=== PATIENT | male | born 1965 | race Caucasian/White ===

== ENCOUNTER 2017-03-20 09:47 | Emergency (ER) | payer BC ==
[2017-03-20 11:42] VITALS: BP 109/68
--- NOTE | 2017-03-20 11:57 | UC ---
Back Pain HPI - HPI Summary HPI Summary: 51 y/o male presents to the urgent care c/o sudden lower back pain since yesterday while lifting a heavy object around 1000 am. Pt reports he has had mild lower back pain since 01/2017, but yesterday it became worse. He has taking Excedrin PO to alleviate pain. Pain spasmodic and sharp, 7/10 with movement and 3/10 at rest. Pt denies numbness and tingling over the lower extremities, saddle anesthesia, urinary or fecal incontinence, SOB, chest pain, N/V/D, abdominal pain. - History of Current Complaint Chief Complaint: UCBackPain Stated Complaint: BACK PAIN Time Seen by Provider: 03/20/17 11:36 Hx Obtained From: Patient Onset/Duration: Sudden Onset, Lasting Days - yesterday, Still Present Timing: Constant Severity Initially: Moderate Severity Currently: Moderate Pain Intensity: 7 Pain Scale Used: 0-10 Numeric Back Pain: Is Discrete @ - lowr back specially at the left side of back Character: Dull, Spasmodic Aggravating Factor(s): Movement, Lifting, Bending Alleviating Factor(s): Rest Associated Signs And Symptoms: Positive: Pain with Weight Bearing. Negative: Swelling, Fever, Weakness, Numbness, Tingling, Bladder Incontinence, Bowel Incontinence - Risk Factors AAA Risk Factors: Negative TAD Risk Factors: Negative Cauda Equina Risk Factors: Negative Epidural Abscess Risk Factors: Negative - Allergies/Home Medications Allergies/Adverse Reactions: Allergies Allergy/AdvReac Type Severity Reaction Status Date / Time No Known Allergies Allergy Verified 07/12/12 13:03 Home Medications: Home Medications Atorvastatin* [Lipitor 40 MG*] 40 mg PO DAILY 03/20/17 [History Confirmed ] Hydrochlorothiazide TAB* [Hydrodiuril TAB*] 25 mg PO DAILY 03/20/17 [History Confirmed 03/20/17] Metformin HCl [Fortamet] 1,000 mg PO BID 03/20/17 [History Confirmed 03/20/17] Colmar-3 Fatty Acids [Fish Oil] 1,000 mg PO DAILY 03/20/17 [History Confirmed ] Ultimate Eye Support 2 tab PO DAILY 03/20/17 [History Confirmed 03/20/17] glipiZIDE TAB* [Glucotrol TAB*] 5 mg PO DAILY 03/20/17 [History Confirmed ] PMH/Surg Hx/FS Hx/Imm Hx Previously Healthy: Yes Endocrine History: Diabetes, Dyslipidemia Cardiovascular History: Hypertension Psychological History: Depression - Surgical History Surgical History: None Surgery Procedure, Year, and Place: vasectomy, depression - Family History Known Family History: Positive: Cardiac Disease, Hypertension, Diabetes - Social History Occupation: Employed Full-time Lives: With Family Alcohol Use: None Substance Use Type: None Smoking Status (MU): Unknown if Ever Smoked Amount Used/How Often: 2 cans per week Review of Systems Constitutional: Negative Skin: Negative Eyes: Negative ENT: Negative Respiratory: Negative Cardiovascular: Negative Gastrointestinal: Negative Genitourinary: Negative Motor: Negative Neurovascular: Negative Musculoskeletal: Other: - lower back pain Neurological: Negative Psychological: Negative Is Patient Immunocompromised?: No All Other Systems Reviewed And Are Negative: Yes Physical Exam Triage Information Reviewed: Yes Vital Signs: Initial Vital Signs Temp 99 F 03/20/17 11:33 Pulse 68 03/20/17 11:33 Resp 22 03/20/17 11:33 BP 109/68 03/20/17 11:33 - Additional Comments Vital reviewed General: Patient is a well developed male without any distress that sitting comfortably in the examining table Skin: [place], warm, dry HEAD AND FACE: No signs of trauma. EYES: PERRLA, EOMI x 2. EARS: Hearing grossly intact. MOUTH: Oropharynx within normal limits. NECK: Supple, trachea is midline, no adenopathy, no JVD. CHEST: Symmetric, no tenderness at palpation LUNGS: CTA bilaterally, no rales, rhonchi or wheezing CVS: RRR, no murmur, rub, or gallop ABDOMEN: soft and Nontender without masses, no guarding or rebound. Bowel sounds are active. No Hepato-splenomegaly. No signs of inguinal hernias. BACK: Patient walked into the urgent care room with symmetric ambulation, No signs of limping, antalgic, able to bear weight. No signs of trauma, Left side spasm in the Paraspinal muscles at the level of L3-L4 spine. No masses palpated. Point tenderness at L3-L4 of lumbat spine, No CVAT, no flank ecchymosis . No sacroiliac notch tenderness, No saddle anesthesia. Decrease ROM : flexion/ extension/ lateral bending and rotation, due to pain Straight Leg Raise: negative.Patellar reflexes: brisk, symmetric Muscle strength lower extremities. Dorsiflexion/ plantar flexion of ankles. Lower extremities: Femoral, popliteal, posterior tibial, and dorsalis pedis pulses with in normal, Rectal: Patient refused the exam. Neurological: WNL Psychological: WNL Skin: dry and warm Back Pain Course/Dx - Course Course Of Treatment: 51 y/o male presents to the urgent care c/o sudden lower back pain since yesterday while lifting a heavy object around 1000 am. Pt reports he has had mild lower back pain since 01/2017, but yesterday it became worse. He has taking Excedrin PO to alleviate pain. Pain spasmodic and sharp, 7/10 with movement and 3/10 at rest. Pt denies numbness and tingling over the lower extremities, saddle anesthesia, urinary or fecal incontinence, SOB, chest pain, N/V/D, abdominal pain.Hx obtained.PE: Point tenderness at the level of the L3-L4 and left paraspinal muscle spasm at the same level on examination. Lumbosacral X-ray ordered, Impression: No acute osseous injury observed. Pt Rx Naproxen PO, flexeril PO and given a PT referral. Patient was instructed to the f/u [facility] in 1 week if symptoms do not improve or worsen. Patient understands and agrees. Patient is able to ambulate freely w/o aid or limp. Plan of care was discussed with the patient and patient understands and agrees. All questions were answered at patient satisfaction. Pt left clinic hemodynamically stable. - Differential Dx/Diagnosis Differential Diagnosis/HQI/PQRI: Arthritis, Cauda Equina Syndrome, Fracture, Herniated Disc, Renal Colic, Strain, Sprain, Other - back spasm Provider Diagnoses: 1- Acute lower back pain. 2-Back spasm Discharge - Discharge Plan Condition: Stable Disposition: HOME Prescriptions: Cyclobenzaprine TAB* [Flexeril 10 MG TAB*] 10 mg PO TID PRN #15 tab PRN Reason: Spasms - Back Naproxen [Naproxen 500 mg] 500 mg PO Q8H PRN #30 tab PRN Reason: Pain Patient Education Materials: Acute Low Back Pain (ED), Muscle Spasm (ED) Referrals: Amanda Lorenz MD [Medical Doctor] - 1 Week Raissa Leung MD [Primary Care Provider] - 1 Week Additional Instructions: 1- Please take Naproxen PO as directed after meals for pain. 2- Take Flexeril PO as directed for muscle spasm. Please do not drive while taking the medication. if you develop confusion, agitation, tachycardia please stop the medication, go immediately to the ER for further treatment 3- Wear a back support. Avoid strenuous exercise of heavy lifting. 4- Please follow up with Orthopedic Dr Lorenz or your PCP in 1 week if not improvement of symptoms, for further management.
--- NOTE | 2017-03-20 12:15 | RAD ---
INDICATION: Acute low back pain after lifting injury COMPARISON: Similar examination dated January 27, 2010 TECHNIQUE: views of the lumbar spine were obtained. FINDINGS: The vertebra are in normal alignment. No fracture is seen. Disc spaces appear maintained. . IMPRESSION: No evidence of fracture or subluxation.
== END 2017-03-20 13:05 | disposition home or self-care (01) ==
LOC: UCCORT 09:47
DX: M54.5 Low back pain (principal); M62.830 Muscle spasm of back; E11.9 Type 2 diabetes mellitus without complications; Z79.84 Long term (current) use of oral hypoglycemic drugs; E78.5 Hyperlipidemia, unspecified; I10 Essential (primary) hypertension; F32.9 Major depressive disorder, single episode, unspecified; F17.220 Nicotine dependence, chewing tobacco, uncomplicated
CPT/HCPCS: 72110; 99202; G0463